=== PATIENT | female | born 1945 | race Caucasian/White ===

== ENCOUNTER 2017-05-02 11:56 | Emergency (ER) | payer MEDICARE, OTHER ==
[~2017-05-02] VITALS: Ht 147.3 cm; Wt 56.0 kg
[~2017-05-02 11:56] MED LIST: AMLODIPINE5 MG PO; B COMPLE2 PO; CLOPIDOGREL75 MG PO; FISH OIL1000 MG PO; FLUTICASONE50 MCG; LORATADINE10 M1 PO; MAXZIDE-2537.5 MG/TA PO; OXYBUTYNIN5 M1 PO; PROLIA60 MG/ML SC; SIMVASTATIN20 MG PO; VITAMIN E400 UNIT PO
[2017-05-02 12:56] LABS: HEMOGLOBIN 13.1 g/dl (12.0-16.0); IMMATURE GRANULOCYTES 0.8 % (0.0-1.0); MEAN CELL VOLUME 90.5 fL CALC (80.0-100.0); MEAN CORPUSCULAR HGB 29.6 pG CALC (26.0-32.0); MEAN CORPUSCULAR HGB CONC 32.8 g/L CALC (32.0-36.0); NEUT# 4.89 thou/uL (2.00-7.15); RED BLOOD COUNT 4.42 mill/uL (4.20-5.60); RED CELL DISTRI WIDTH 13.2 % (11.5-15.5)
[2017-05-02 13:19] LABS: ALBUMIN 4.7 g/dL (3.2-5.0); ALKALINE PHOSPHATASE 83 u/l (38-126); ANION GAP 18 (6-22 (CALC)); BILIRUBIN, TOTAL 0.9 mg/dL (0.0-1.4); BUN 14 mg/dL (8-23); BUN/CREATININE RATIO 16 (12-20 (CALC)); CALCIUM 9.7 mg/dL (8.4-10.2); CARBON DIOXIDE 24 mmol/l (22-30); CHLORIDE 104 mmol/l (95-108); CREATININE 0.9 mg/dL (0.5-1.0); GFR > 60 ML/MIN (>=60 (CALC)); GFR FOR AFR.AMER. > 60 ML/MIN (>=60 (CALC)); GLUCOSE 133 mg/dL (82-115); LIPASE 188 u/l (23-300); POTASSIUM 3.6 mmol/l (3.5-5.1); SGOT/AST 30 u/l (9-36); SGPT/ALT 40 u/l (11-66); SODIUM 142 mmol/l (137-146); TOTAL PROTEIN 7.3 g/dL (6.3-8.2)
[2017-05-02 13:49] LABS: URINE BILIRUBIN - DIPSTICK NEGATIVE (NEGATIVE); URINE BLOOD DIPSTICK NEGATIVE (NEGATIVE); URINE CLARITY CLEAR; URINE COLOR YELLOW; URINE GLUCOSE - DIPSTICK NEGATIVE (NEGATIVE); URINE KETONE 15 mg/dL (NEGATIVE); URINE LEUK ESTERASE NEGATIVE (NEGATIVE); URINE NITRITE - DIPSTICK NEGATIVE (Negative); URINE PROTEIN - DIPSTICK NEGATIVE (NEG-TRACE); URINE SPECIFIC GRAVITY 1.015; URINE UROBILINOGEN - DIPSTICK 0.2 E.U./dL (0.2)
[2017-05-02] MEDS ORDERED: ZOFRAN4 M1 PO (13:52)
[2017-05-02 14:07] VITALS: BP 128/76
== END 2017-05-02 14:20 | disposition home or self-care (01) ==
LOC: ED 11:56
PROVIDERS: Family Medicine
DX: K52.9 Noninfective gastroenteritis and colitis, unspecified (principal); I10 Essential (primary) hypertension; Z86.73 Personal history of transient ischemic attack (TIA), and cerebral infarction without residual deficits

== ENCOUNTER → 2018-10-19 | Outpatient (REF) | payer MEDICARE, OTHER ==
[~2018-10-19] MED LIST changes: +ZOFRAN4 M1 PO
[2018-10-19 10:22] LABS: HEMATOCRIT 39.9 % (37.0-47.0); HEMOGLOBIN 12.5 g/dl (12.0-16.0); IMMATURE GRANULOCYTES 0.2 % (0.0-5.0); MEAN CELL VOLUME 93.2 fL CALC (80.0-100.0); MEAN CORPUSCULAR HGB 29.2 pG CALC (26.0-32.0); MEAN CORPUSCULAR HGB CONC 31.3 g/L CALC (32.0-36.0); NEUT# 2.99 thou/uL (2.00-7.15); RED BLOOD COUNT 4.28 mill/uL (4.20-5.60); RED CELL DISTRI WIDTH 13.3 % (11.5-15.5)
[2018-10-19 10:42] LABS: ALBUMIN 4.4 g/dL (3.2-5.0); ALKALINE PHOSPHATASE 76 u/l (38-126); ANION GAP 13 (6-22 (CALC)); BILIRUBIN, TOTAL 0.4 mg/dL (0.0-1.4); BUN 15 mg/dL (8-23); BUN/CREATININE RATIO 17 (12-20 (CALC)); CALCULATED LDLCHOLESTEROL 57 mg/dL (62-129 (CALC)); CARBON DIOXIDE 27 mmol/l (22-30); CHLORIDE 107 mmol/l (95-108); CHOLESTEROL HDL RATIO 2.4 (<4.4 (CALC)); CREATININE 0.9 mg/dL (0.5-1.0); GFR > 60 ML/MIN (>=60 (CALC)); GFR FOR AFR.AMER. > 60 ML/MIN (>=60 (CALC)); HDL CHOLESTEROL 56 mg/dL (>=40); POTASSIUM 3.9 mmol/l (3.5-5.1); SGOT/AST 28 u/l (9-36); SODIUM 143 mmol/l (137-146); TOTAL CHOLESTEROL 133 mg/dl (0-199); TOTAL PROTEIN 6.6 g/dL (6.3-8.2); TOTAL TRIGLYCERIDES 100 mg/dl (30-149); VLDL CHOLESTROL 20 mg/dl (0-48 (CALC))
== END | disposition home or self-care (01) ==
LOC: LAB 09:07
PROVIDERS: ATTEND Nurse Practitioner Family
DX: I10 Essential (primary) hypertension (principal); M81.0 Age-related osteoporosis without current pathological fracture; M81.8 Other osteoporosis without current pathological fracture; N18.3 Chronic kidney disease, stage 3 (moderate)

== ENCOUNTER 2021-06-14 15:04 | Inpatient (IN) | payer MEDICARE, OTHER ==
[~2021-06-14] VITALS: Ht 149.9 cm; Wt 59.0 kg
--- NOTE | 2021-06-14 15:36 | NUR ---
PATIENT IN BED IN IN NO ACUTE DISTRESS. LABS COLLECTED. -
[2021-06-14 15:45] LABS: HEMATOCRIT 37.8 % (37.0-47.0); HEMOGLOBIN 12.6 g/dl (12.0-16.0); IMMATURE GRANULOCYTES 0.2 % (0.0-5.0); MEAN CORPUSCULAR HGB 29.3 pG CALC (26.0-32.0); MEAN CORPUSCULAR HGB CONC 33.3 g/dL CAL (32.0-36.0); NEUT# 5.33 thou/uL (2.00-7.15); RED BLOOD COUNT 4.3 mill/uL (4.20-5.60); RED CELL DISTRI WIDTH 12.9 % (11.5-15.5)
[2021-06-14 15:47] LABS: MEAN CELL VOLUME 87.9 fL CALC (80.0-100.0)
[2021-06-14 15:56] LABS: ALBUMIN 3.6 g/dL (3.2-5.0); ALKALINE PHOSPHATASE 89 u/l (38-126); BILIRUBIN, TOTAL 0.8 mg/dL (0.0-1.4); BUN 18 mg/dL (8-23); BUN/CREATININE RATIO 23 (12-20 (CALC)); C-REACTIVE PROTEIN 7.1 mg/dL (0-0.9); CARBON DIOXIDE 24 mmol/l (22-30); CREATININE 0.8 mg/dL (0.5-1.0); GFR > 60 ML/MIN (>=60 (CALC)); GFR FOR AFR.AMER. > 60 ML/MIN (>=60 (CALC)); SGOT/AST 36 u/l (9-36); TOTAL PROTEIN 6.3 g/dL (6.3-8.2)
[2021-06-14 15:57] LABS: ANION GAP 12 (6-22 (CALC)); CHLORIDE 92 mmol/l (95-108); POTASSIUM 3.4 mmol/l (3.5-5.1); SODIUM 125 mmol/l (137-146)
--- NOTE | 2021-06-14 16:50 | NUR ---
ASSISTED TO BEDSIDE COMMODE.
--- NOTE | 2021-06-14 18:19 | NUR ---
PER PTS REQUEST CALLED PTS AND UPDATED ON CONDITION.
[2021-06-14 18:29] LABS: URINE BILIRUBIN - DIPSTICK NEGATIVE (NEGATIVE); URINE BLOOD DIPSTICK SMALL (NEGATIVE); URINE COLOR YELLOW; URINE GLUCOSE - DIPSTICK NEGATIVE (NEGATIVE); URINE KETONE TRACE mg/dL (NEGATIVE); URINE LEUK ESTERASE NEGATIVE (NEGATIVE); URINE PROTEIN - DIPSTICK 30 mg/dL (NEG-TRACE); URINE SPECIFIC GRAVITY 1.015; URINE UROBILINOGEN - DIPSTICK 0.2 E.U./dL (0.2)
[2021-06-14 18:30] LABS: URINE NITRITE - DIPSTICK NEGATIVE (Negative)
--- NOTE | 2021-06-14 18:30 | NUR ---
RT AT BEDSIDE
[2021-06-14 18:42] LABS: URINE RBC 0-2 RBC/hpf (0-5)
--- NOTE | 2021-06-14 19:00 | NUR ---
REPORT GIVEN TO CARMELITA GOODSON.
--- NOTE | 2021-06-14 19:06 | NUR ---
RT AT BEDSIDE AND PLACED ON HI FLOW NC AT 13L WITH AN O2 SAT OF 93%
--- NOTE | 2021-06-14 19:51 | NUR ---
SPOUSE UPDATED REGARDING ADMISSION PER PATIENT REQUEST.
--- NOTE | 2021-06-14 19:59 | NUR ---
RECONCILED MEDICATIONS WITH PT. RESTING COMFORTABLY AND AWAITING ADMISSION.
--- NOTE | 2021-06-14 20:53 | NUR ---
PT DOZING INTERMITTENTLY. DENIES CONCERNS AT THIS TIME. VSS.
--- NOTE | 2021-06-14 21:45 | NUR ---
SLEEPING. COVID SWAB COMPLETED.
--- NOTE | 2021-06-14 23:49 | NUR ---
REPORT CALLED TO ANGELICA GOODSON IN ICU
--- NOTE | 2021-06-14 23:59 | NUR ---
PT TRANSPORTED TO ICU VIA STRETCHER, ALL BELONGINGS SENT WITH PATIENT.
[2021-06-15] VITALS (19 sets, daily range): BP systolic 96–176; BP diastolic 45–91
--- NOTE | 2021-06-15 00:08 | NUR ---
female pt received to ICU bed 1 via stretcher accompanied by FLORES Newman in stable condition; pt able to transfer self from bed to bed; admission assessment completed at this time; pt alert and oriented; denies pain; no n/v noted; c/c of increased sob and cough; pt sent from IVT (d/t receive regeneron) to ER for low o2; resp even and unlabored; lungs clear/ diminished bases; skin color wnl; o2 per hi flow nc at 13L; o2 sat 83%; titrated to 15L; different methods of oxygenation explained (vapo, bipap and intubation); bridge painter helper dry freq cough noted; hr reg; strong pulses; no edema noted; sr on monitor; abd soft with bs present; no bm noted per food writer; pt saturated in urine; pericare provided; purewick applied; #20 to rac #22 to lac flushed and patent; no redness or edema noted at sites; plan of care/ ivf explained; pt oriented to bed and call light system; will continue to monitor
--- NOTE | 2021-06-15 01:15 | NUR ---
resting in bed with eyes closed; o2 per nc at 15L; o2 sat 95%; will continue to monitor
--- NOTE | 2021-06-15 02:15 | NUR ---
resting in bed with eyes closed; no apparent distress noted; o2 per nc at 15L; sr on monitor; call light within reach; will continue to monitor
--- NOTE | 2021-06-15 04:30 | NUR ---
awake in bed; offers no complaints; no apparent distress noted; iv intact; o2 per nc at 15L HF; sr on monitor; purewick intact and patent; call light within reach; will continue to monitor
[2021-06-15 05:05] LABS: HEMOGLOBIN 12.6 g/dl (12.0-16.0); IMMATURE GRANULOCYTES 0.4 % (0.0-5.0); MEAN CELL VOLUME 90.5 fL CALC (80.0-100.0); MEAN CORPUSCULAR HGB 29.2 pG CALC (26.0-32.0); MEAN CORPUSCULAR HGB CONC 32.3 g/dL CAL (32.0-36.0); NEUT# 4.26 thou/uL (2.00-7.15); RED BLOOD COUNT 4.31 mill/uL (4.20-5.60)
[2021-06-15 05:25] LABS: ALBUMIN 3.1 g/dL (3.2-5.0); ALKALINE PHOSPHATASE 77 u/l (38-126); ANION GAP 12 (6-22 (CALC)); BILIRUBIN, TOTAL 0.6 mg/dL (0.0-1.4); BUN 15 mg/dL (8-23); BUN/CREATININE RATIO 22 (12-20 (CALC)); C-REACTIVE PROTEIN 7.3 mg/dL (0-0.9); CARBON DIOXIDE 22 mmol/l (22-30); CHLORIDE 102 mmol/l (95-108); CREATININE 0.7 mg/dL (0.5-1.0); GFR > 60 ML/MIN (>=60 (CALC)); GFR FOR AFR.AMER. > 60 ML/MIN (>=60 (CALC)); POTASSIUM 3.9 mmol/l (3.5-5.1); SGOT/AST 36 u/l (9-36); TOTAL PROTEIN 5.6 g/dL (6.3-8.2)
[2021-06-15 05:31] LABS: SODIUM 132 mmol/l (137-146)
--- NOTE | 2021-06-15 06:02 | NUR ---
pt resting in bed with eyes closed; no apparent distress noted; resp even and unlabored; o2 per nc HF 15L; purewick intact; sr on monitor; iv intact and patent; call light within reach
--- NOTE | 2021-06-15 07:00 | NUR ---
REPORT RECEIVED FROM KELLEE DOMINGUEZ. PT RESTING WITH EYES CLOSED. VSS. DOES NOT APPEAR TO BE SOB, OR IN RESPIRATORY DISRESS. CALL BAZAN WITHIN REACH. WILL CONTINUE TO MONITOR CLOSELY.
--- NOTE | 2021-06-15 07:24 | NUR ---
pt laying flat in bed, nad. vss. box stamper to monitor.
--- NOTE | 2021-06-15 08:10 | NUR ---
PT ASSESSED AT THIS TIME, SPO2 IS 96% ON 15L HIFLOW OXYGEN. PT AWAKENS EASILY, AND RESPONDS APPROPRIATELY. CARRIES ON CASUAL CONVERSATION WITHOUT EXERTIONAL SOB. ABLE TO TAKE DECADRON PO WITH THIN LIQUIDS WITH NO COUGH NOTED. PT ADL'S PREFORMED, OXYGEN ATTEMPTED TO TITRATE TO 13L, DOES NOT APPEAR TO BE IN ANY RESPIRATORY DISTRESS AFTER 5 MINUTES OF ASSESSMENT. SPO2 REMAINS AT 93%, OXYGEN TITRATED TO 10L, AND SPO2 DROPS TO 88%. PT BEGINS TO COUGH AND HAS PRODUCTIVE CLEAR/YELLOW SPUTUM. SPO2 IS 82% AND PT IS SOB. OXYGEN TITRATED BACK TO 13L, AFTER TWO MINUTES, SPO2 REMAINS AT 85% OXYGEN TITRATED BACK TO 15L. IN THIS TIME REMDESIVIR SPIKED AND RUNNING. PT SPO2 REACHES 94% ON 15L. WILL KEEP AT 15L, UNTIL AFTER AM CARE, AND ATTEMPT TITRATION AGAIN. WILL COLLABORATE WITH RT FOR CONTINUAL DECREASE OF TITRATION. MD ON UNIT AND WILL INFORM OF ATTEMPT.
--- NOTE | 2021-06-15 10:14 | NUR ---
PT RESTING IN BED, SPO2 IS 94% ON 15L HIGH FLOW. MD NOTIFIED OF BOP 172/70, HOME MEDS TO BE REVIEWED AND ORDERED. PT DOES NOT APPEAR TO BE SOB OR HAVE DISCOMFORT. TOLERATED BED BATH WITH EXERTIONAL SOB. GIVEN BREAKS INBETWEEN TASKS AND SPO2 RISES ABOVE 88%. CALL LIGHT WITHIN REACH. INSTRUCTED PT TO CALL FOR ASSISTANCE, VERBALIZES UNDERSTANDING.
--- NOTE | 2021-06-15 12:00 | NUR ---
PT SITTING SEMI-FOWLERS IN BED. VSS, PT SAT-UP FOR MEAL TRAY, PT STATES "I DO NOT EAT BEEF, BUT DONT ORDER ME ANYTHING ELSE, BECAUSE I AM HONESTLY NOT THAT HUNGRY." PT TOLERATED LUISANA SHAKE, DRANK 100% OF SHAKE. SPO2 REMAINS 85-92% ON 14L HI-FLOW. CALL LIGHT WITHIN REACH, INSTRUCTED PT TO CALL FOR ASSISTANCE, VERBALIZES UNDERSTANDING.
--- NOTE | 2021-06-15 13:59 | NUR ---
PT RESTING IN BED SEMI-FOWLERS. DENIES PAIN. STATES "I HONESTLY DONT FEEL SHORT OF BREATHE." PT ALSO STATES "I WISH EVERYONE WOULD JUST LET US BE." UPON FURTHER QUESTIONING, PT ADMITS TO WAKING UP FROM A SLEEP. PT ADMITS TO HAVING A LARGE AMOUNT OF STRESS REGARDING THE LOSS OF HER SON WITHIN THE LAST TWO WEEKS. PT ADMITS TO BE EXHAUSTED FROM EVENTS. SUPPORTIVE THERAPEUTIC COMMUNICATION GIVEN. PT SPO2 REMAINS BETWEEN 85-92%
--- NOTE | 2021-06-15 15:12 | NUR ---
RT NOTIFIED AT THIS TIME OF PT'S INCREASED CONFUSION AND SPO2 REMAINING IN THE LOW 80'S. VAPOTHERM TO BE INITIATED.
--- NOTE | 2021-06-15 15:20 | NUR ---
HHFNC INITIATED PER PT SPO2. MICHEAL WELL AT THIS TIME. GAS PLUMBING INSPECTOR TO MONITOR.
--- NOTE | 2021-06-15 16:00 | NUR ---
PT SPO2 IS 72% TITRATED HHFNC FROM 99-14-62-40L WITHIN A 15 MINUTE TIME SPAN. RT NOTIFIED OF SATURATION LEVELS BEING LOW. MD AWARE OF PT'S LOW SPO2. PT DENIES FEELING SOB, VS OTHERWISE STABLE.
--- NOTE | 2021-06-15 18:00 | NUR ---
FAMILY NOTIFIED OF PT'S LOW SPO2, POC REVIEWED WITH FAMILY. STATES UNDERSTANDING AT THIS TIME. PT REMAINS CONFUSED AND ATTEMPTING TO TAKE OXYGEN OFF. WILL CONTINUE TO MONITOR CLOSELY.
--- NOTE | 2021-06-15 19:20 | NUR ---
pt awake in bed; very anxious/ restless; assessment completed at this time; pt alert to person and time only; pt noted with some confusion; pt denies pain/ distress; no n/v noted; resp labored; pt has removed vapotherm and NRB; o2 sat 63% on RA; both re-applied with a quick recovery to 87-91%; comsec manager dry cough noted; lungs clear/ diminished bases; skin color wnl; pt more exerted with repositioning; o2 therapy importance explained in great detail/ pt compliance also explained; hr reg; strong pulses; no edema noted; bilat scds intact; sr on monitor; abd soft with bs present; no bm noted per production underwriter; purewick dislodged and reapplied correctly; no urinary incontinence noted; #20 to rac and #22 to lac flushed and patent; no redness or edema noted at sites; plan of care/ meds explained; xanax to be administered; pt expresses wishes to go home for her son leslie on 06/21/21; severity of illness explained; emotional support provided; bed alarm activated for pt safety; will continue to monitor
--- NOTE | 2021-06-15 20:10 | NUR ---
resting in bed with eyes closed; resp even and unlabored; sr on monitor; vapotherm and NRB intact; o2 sat 88%; will continue to monitor
--- NOTE | 2021-06-15 20:16 | NUR ---
pt alarm sounding; pt attempting to get out of bed
--- NOTE | 2021-06-15 20:23 | NUR ---
Dr Acosta call; spoke with MD in regards to o2 sat; pt currently 88% with the use of vapo and NRB; pt to be converted to bipap for sats less than 87% or increased sob/resp distress; will continue to monitor
--- NOTE | 2021-06-15 20:50 | NUR ---
pt noted to have removed vapo and NRB; o2 sat 61% on room; air; both reapplied; pt SLOW to recover
--- NOTE | 2021-06-15 21:12 | NUR ---
pt has removed NRB; 02 sat 80% with vapotherm only; reapplied; RT notiifed of plan for bipap for o2 sat <88%; will continue to monitor
--- NOTE | 2021-06-15 21:35 | NUR ---
RT at bedside; bipap applied at 100%; o2 sat 99%; will continue to monitor
--- NOTE | 2021-06-15 22:10 | NUR ---
pt noted to be sitting on the side of bed; pt has removed purewick; pt has attempted to remove bipap; repositioned; pericare per staff; purewick placed; increased confusion noted;; sr on monitor; will continue to monitor
--- NOTE | 2021-06-15 22:22 | NUR ---
pt has removed bipap mask; desat to low 60%; importance of o2 compliance explained; pt less cooperative with staff; will continue to monitor
--- NOTE | 2021-06-15 22:26 | NUR ---
Dr Acosta called per commercial real estate underwriter; informed bipap was placed at 2134; pt more confused and less cooperative with staff; pt continues to remove bipap frequently; no effect from xanax; orders to be placed; aware of possible need for intubation if pt continues to remove bipap
--- NOTE | 2021-06-15 22:27 | NUR ---
call placed to grand daughter Soumya; family (Soumya and Leroy) updated on pt condition in regards to bipap and pt less cooperative with staff/ continuously removing bipap/desat/possible need for intubation if behavior continues; family requested to speak with pt ovre portable phone; pt able to converse with family and agree to treatment at this time; will medicate and continue to monitor
--- NOTE | 2021-06-15 23:40 | NUR ---
pt very fidgety; pulling at pulse ox cord; pulse ox applied to right great toe; bipap intact and maintained; will continue to monitor
[2021-06-16] VITALS (11 sets, daily range): BP systolic 114–166; BP diastolic 50–78
--- NOTE | 2021-06-16 | NUR ---
eyes closed but pt noted talking amongst self; no distress noted; pt has removed bipap; reappied; iv intact; sr on monitor; purewick intact; repositioned in bed for comfort; will continue to monitor closely
--- NOTE | 2021-06-16 01:31 | NUR ---
pt removed bipap/ desat to 53%; quickly recovers once reapplied; pt has removed gown and tele leads; complete bed bath/linen change provided; repositioned; monitoring attachments reapplied; will continue to monitor
--- NOTE | 2021-06-16 02:11 | NUR ---
awake; removed compliance monitor and iv from lac; linens changed; #20 started to rw x1 attempt; sites secured with coban; will continue to monitor
--- NOTE | 2021-06-16 03:15 | NUR ---
[id number]: pt confused; pt has removed monitoring attachements, gown and bipap; bipap reapplied; pt pushing against staff when attempting to apply bipap; o2 sat recovered from 53% on RA to 94-97% quickly with bipap; cleansed for lg loose brown bm; pt removes purewick soon as applied; relaxation measures attempted; will continue to monitor
--- NOTE | 2021-06-16 04:08 | NUR ---
awake in bed; bipap intact and maintained; pt less anxious at this time; iv intact; will continue to monitor
[2021-06-16 05:01] LABS: HEMATOCRIT 38.8 % (37.0-47.0); HEMOGLOBIN 12.5 g/dl (12.0-16.0); MEAN CORPUSCULAR HGB CONC 32.2 g/dL CAL (32.0-36.0); NEUT# 5.02 thou/uL (2.00-7.15); RED BLOOD COUNT 4.31 mill/uL (4.20-5.60); RED CELL DISTRI WIDTH 13.3 % (11.5-15.5)
[2021-06-16 05:29] LABS: ALKALINE PHOSPHATASE 88 u/l (38-126); BILIRUBIN, TOTAL 0.7 mg/dL (0.0-1.4); BUN 18 mg/dL (8-23); BUN/CREATININE RATIO 25 (12-20 (CALC)); CHLORIDE 101 mmol/l (95-108); CREATININE 0.7 mg/dL (0.5-1.0); GFR > 60 ML/MIN (>=60 (CALC)); GFR FOR AFR.AMER. > 60 ML/MIN (>=60 (CALC)); POTASSIUM 4.3 mmol/l (3.5-5.1); SODIUM 134 mmol/l (137-146); TOTAL PROTEIN 5.6 g/dL (6.3-8.2)
[2021-06-16 05:30] LABS: ANION GAP 9 (6-22 (CALC)); CARBON DIOXIDE 28 mmol/l (22-30); SGOT/AST 192 u/l (9-36)
--- NOTE | 2021-06-16 05:45 | NUR ---
pt has removed bipap; o2 sat 33% upon entry to room; bipap reapplied with slow recovery in o2 sat; pt cleansed for lg urinary incont; linens change; iv intact; sr-st on monitor; repositioned; bed alarm set for pt safety
--- NOTE | 2021-06-16 06:11 | NUR ---
hald way our of bed; bipap reapplied;
--- NOTE | 2021-06-16 08:29 | NUR ---
PT RESTING CALMLY AT THIS TIME AFTER IV ADMINISTRATION OF ATIVAN. BIPAP SECURED WITH 0 LEAK PRESENT, RE-ADJUSTMENTS MADE S/T ABG RESULTS. SETTINGS MADE ARE 14/10 FIO2 INCREASED TO 90% AND RR DECREASED TO 20. CHRISTIAN PLACED AT THIS TIME TO REDUCE IRRITATION.
--- NOTE | 2021-06-16 09:40 | NUR ---
ON PHONE AT THIS TIME. EXPLANATION OF PT STATUS EXPLAINED AT LENGTH. POC DISCUSSED. REFUSING PT TO BE INTUBATED OR CPR PREFORMED IF PT WERE TO DECLINE, OR NEED LIFE SAVING MEASURES. MD MADE AWARE OF DECISION, STATES HE WILL CALL AND DISCUSS POC FURTHER.
--- NOTE | 2021-06-16 10:16 | NUR ---
PT MADE DNR STATUS AT THIS TIME. VS REMAIN STABLE AND BIPAP REMAINS ON WITH NO CHANGE TO SETTINGS. PT REMAINS RESTLESS, RESTRAINTS IN PLACE
--- NOTE | 2021-06-16 11:38 | NUR ---
SPOKE WITH DR SIMMONS ABOUT PATIENT STATUS. PATIENT HAS BEEN MADE A DNR PER FAMILY REQUEST. CONTINUE BIPAP 14/10 80% TITRATE TOLERATED.
--- NOTE | 2021-06-16 14:00 | NUR ---
PT RESTING WITH RESTRAINTS IN PLACE, VSS, PT GIVEN ORAL CARE AND REPOSITIONED. NO EVENTS TO REPORT.
--- NOTE | 2021-06-16 16:24 | NUR ---
PT FIO2 WEANED SLOWLY TO 70% BECAUSE SATS WERE 100%.
--- NOTE | 2021-06-16 16:37 | NUR ---
PT ON PHONE STATING THAT HE IS HAVING SECOND THOUGHTS ABOUT POC, STATES HE DOES WANT HIS TO BE INTUBATED IF THE BIPAP SHOULD FAIL AND PT NEEDS EXTRA SUPPORTIVE CARE. INFORMED EDUCATED OF DNR STATUS AND POC, INTUBATION OF DECLINE OF PT WOULD STILL TAKE PLACE IF BIPAP MACHINE FAILS. STATES UNDERSTANDING.
--- NOTE | 2021-06-16 18:00 | NUR ---
PT SPO2 REMAINS 94-98% ON 70%FIO2. VSS, PT AWAKE AND MORE ALERT. COOPERATIVE. STILL TRYING TO REACH FOR MASK AT TIMES, RESTRAINTS REMAIN IN PLACE FOR SAFETY MEASURES. PT DOES NOT APPEAR TO BE IN RESPIRATORY DISTRESS. WILL CONTINUE TO MONITOR CLOSELY.
--- NOTE | 2021-06-16 19:00 | NUR ---
REPORT RECEIVED FROM Franck SOMMERRN
--- NOTE | 2021-06-16 20:16 | NUR ---
PT IN SUPINE POSITION, RESTING WITH EYES CLOSED; BIPAP IN PLACE 30/05 RR20 70% FIO2, O2 SATS 96%; CHRISTIAN DRAINING TO BEDSIDE BAG WITHOUT DIFFICULTY; SCD IN PLACE; BILAT SOFT WRIST RESTRAINTS IN PLACE FOR PT SAFETY; CALL BAZAN WITHIN REACH; WILL CONTINUE TO MONITOR.
--- NOTE | 2021-06-16 22:40 | NUR ---
PT AROUSABLE; A/O TO NAME ONLY; NO COMPLAINTS; NO S/SX OF DISTRESS NOTED; BIPAP IN PLACE; WILL CONTINUE TO MONITOR.
[2021-06-17] VITALS (22 sets, daily range): BP systolic 108–159; BP diastolic 54–77
--- NOTE | 2021-06-17 00:15 | NUR ---
PT REPOSITIONED; PT REQUEST WARM BLANKET PROVIDED; CALL BAZAN WITHIN REACH; WILL CONTINUE TO MONITOR
--- NOTE | 2021-06-17 02:00 | NUR ---
pt resting; restraints in place; bipap settings unchanged; pt o2 sat 98%; will continue to monitor.
--- NOTE | 2021-06-17 04:37 | NUR ---
PT REPOSITIONED; NO CHANGE IN STATUS AT THIS TIME; WILL CONTINUE TO MONITOR
--- NOTE | 2021-06-17 04:46 | NUR ---
DIAMOND GRADER IN ROOM TO DRAW BLOOD
[2021-06-17 05:15] LABS: HEMATOCRIT 37.6 % (37.0-47.0); HEMOGLOBIN 12.1 g/dl (12.0-16.0); IMMATURE GRANULOCYTES 0.7 % (0.0-5.0); MEAN CELL VOLUME 91.9 fL CALC (80.0-100.0); MEAN CORPUSCULAR HGB 29.6 pG CALC (26.0-32.0); MEAN CORPUSCULAR HGB CONC 32.2 g/dL CAL (32.0-36.0); NEUT# 5.93 thou/uL (2.00-7.15); RED BLOOD COUNT 4.09 mill/uL (4.20-5.60); RED CELL DISTRI WIDTH 13.2 % (11.5-15.5)
[2021-06-17 05:52] LABS: ALBUMIN 2.8 g/dL (3.2-5.0); ALKALINE PHOSPHATASE 78 u/l (38-126); ANION GAP 9 (6-22 (CALC)); BILIRUBIN, TOTAL 0.6 mg/dL (0.0-1.4); BUN 23 mg/dL (8-23); BUN/CREATININE RATIO 34 (12-20 (CALC)); C-REACTIVE PROTEIN 6.5 mg/dL (0-0.9); CARBON DIOXIDE 28 mmol/l (22-30); CHLORIDE 104 mmol/l (95-108); CREATININE 0.7 mg/dL (0.5-1.0); GFR > 60 ML/MIN (>=60 (CALC)); GFR FOR AFR.AMER. > 60 ML/MIN (>=60 (CALC)); POTASSIUM 4.1 mmol/l (3.5-5.1); SGOT/AST 71 u/l (9-36); SODIUM 137 mmol/l (137-146); TOTAL PROTEIN 5.3 g/dL (6.3-8.2)
--- NOTE | 2021-06-17 06:28 | NUR ---
PATIENT RESTING IN BED ON BIPAP. NO DISTRESS NOTED. VSS ON MONITOR. WILL CONTINUE TO MONITOR.
--- NOTE | 2021-06-17 09:12 | NUR ---
MEDS GIVEN PER OCT. MOUTH CARE PROVIDED. BROWN TO DARK BROWN THICK SPUTUM COUGH UP. CONTINUES WITH BPAP.
--- NOTE | 2021-06-17 09:26 | NUR ---
DR BRASWELL IN WITH PT AT THIS TIME.
--- NOTE | 2021-06-17 11:19 | NUR ---
CURRENTLY ON VAPORTHERM 100% FI02 40L WITH NONREBREATHER 15L. 02 SAT 87-92%.
--- NOTE | 2021-06-17 12:30 | NUR ---
ASSIST FED LUNCH ABOUT 50% CONSUMED.
--- NOTE | 2021-06-17 14:10 | NUR ---
REMDESIVIR INFUSING AT THIS TIME.
--- NOTE | 2021-06-17 15:05 | NUR ---
BED BATH PROVIDED, MOUTH CARE DONE, LINENS CHANGED.
--- NOTE | 2021-06-17 17:30 | NUR ---
RECIEVED CALL FROM BETTY LADD AND GAVE UPDATE ON PT CONDITION.
--- NOTE | 2021-06-17 19:00 | NUR ---
REPORT RECEIVED FROM Julia MAYA RN, CARE OF PT ASSUMED AT THIS TIME.
--- NOTE | 2021-06-17 22:30 | NUR ---
PT COMPLAINS OF FEELING THE NEED TO VOID. ON ASSESMENT CHRISTIAN IS SECURED TO LEG, TUBING UNKINKED AND UNOBSTRUCTED DRAINING CLEAR YELLOW URINE. BLADDER SCANPERFORMED AND SHOWS RESULT OF 000ML.
[2021-06-18] VITALS (24 sets, daily range): BP systolic 100–163; BP diastolic 48–90
--- NOTE | 2021-06-18 04:10 | NUR ---
Franck BATISTA MATRIX DRIER TENDER IN ROOM TO COLLECT AM LABS.
--- NOTE | 2021-06-18 04:40 | NUR ---
SPO2 76%, PT NOT KEEPING CANNULA IN NOSE AND TWISTS NRB BAG CAUSING FLOW OBSTRUCTION. B. JESSY MILL TENDER SECOND OPERATOR CONSULTED. B. JESSY RE-APPLIES BIPAP TO PT. SPO2 INCREASES TO 95%. PT TOLERATING BIPAP WITHOUT ATTEMPTING TO REMOVE AT THIS TIME.
[2021-06-18 06:00] LABS: HEMATOCRIT 37.5 % (37.0-47.0); HEMOGLOBIN 12.2 g/dl (12.0-16.0); MEAN CELL VOLUME 90.4 fL CALC (80.0-100.0); MEAN CORPUSCULAR HGB 29.4 pG CALC (26.0-32.0); MEAN CORPUSCULAR HGB CONC 32.5 g/dL CAL (32.0-36.0); RED BLOOD COUNT 4.15 mill/uL (4.20-5.60)
[2021-06-18 06:13] LABS: ALBUMIN 2.6 g/dL (3.2-5.0); ALKALINE PHOSPHATASE 81 u/l (38-126); ANION GAP 7 (6-22 (CALC)); BILIRUBIN, TOTAL 0.5 mg/dL (0.0-1.4); BUN 21 mg/dL (8-23); BUN/CREATININE RATIO 31 (12-20 (CALC)); CARBON DIOXIDE 28 mmol/l (22-30); CHLORIDE 100 mmol/l (95-108); CREATININE 0.7 mg/dL (0.5-1.0); GFR > 60 ML/MIN (>=60 (CALC)); GFR FOR AFR.AMER. > 60 ML/MIN (>=60 (CALC)); POTASSIUM 3.8 mmol/l (3.5-5.1); SGOT/AST 45 u/l (9-36); SODIUM 132 mmol/l (137-146); TOTAL PROTEIN 5.1 g/dL (6.3-8.2)
--- NOTE | 2021-06-18 08:00 | NUR ---
PT UP OUT OF BED INTO RECLINER. RT PLACED PT ON VAPOTHERM 40L 100% FIO2 WITH NRB AT 15L. ATTEMPTED TO ASSIST WITH BREAKFAST LESS THAN 25% CONSUMED.
--- NOTE | 2021-06-18 08:58 | NUR ---
DR BRASWELL IN TO SEE PT.
--- NOTE | 2021-06-18 11:00 | NUR ---
ASSISTED WITH LUNCH ABOUT 50% CONSUMED.
--- NOTE | 2021-06-18 13:43 | NUR ---
RESTING COMFORTABLE IN RECLINER.
--- NOTE | 2021-06-18 15:50 | NUR ---
RT IN WITH PT.
--- NOTE | 2021-06-18 17:00 | NUR ---
ASSISTED BACK TO BED FROM RECLINER WITH ONE PERSON ASSIST.
--- NOTE | 2021-06-18 19:00 | NUR ---
REPORT RECEIVED FROM Julia MAYA RN, CARE OF PT ASSUMED AT THIS TIME.
[2021-06-19] VITALS (14 sets, daily range): BP systolic 125–151; BP diastolic 59–84
--- NOTE | 2021-06-19 04:05 | NUR ---
Franck BATISTA SALES AGENT BUSINESS SERVICES IN ROOM TO COLLECT AM LABS.
[2021-06-19 06:02] LABS: HEMOGLOBIN 11.7 g/dl (12.0-16.0); IMMATURE GRANULOCYTES 1.7 % (0.0-5.0); MEAN CELL VOLUME 86.8 fL CALC (80.0-100.0); MEAN CORPUSCULAR HGB CONC 33.4 g/dL CAL (32.0-36.0); NEUT# 8.22 thou/uL (2.00-7.15); RED BLOOD COUNT 4.03 mill/uL (4.20-5.60); RED CELL DISTRI WIDTH 12.8 % (11.5-15.5)
[2021-06-19 06:31] LABS: ALBUMIN 2.6 g/dL (3.2-5.0); ALKALINE PHOSPHATASE 84 u/l (38-126); ANION GAP 11 (6-22 (CALC)); BILIRUBIN, TOTAL 0.5 mg/dL (0.0-1.4); BUN 18 mg/dL (8-23); BUN/CREATININE RATIO 24 (12-20 (CALC)); CARBON DIOXIDE 28 mmol/l (22-30); CHLORIDE 100 mmol/l (95-108); CREATININE 0.8 mg/dL (0.5-1.0); GFR > 60 ML/MIN (>=60 (CALC)); GFR FOR AFR.AMER. > 60 ML/MIN (>=60 (CALC)); POTASSIUM 4.2 mmol/l (3.5-5.1); SGOT/AST 42 u/l (9-36); SODIUM 134 mmol/l (137-146); TOTAL PROTEIN 5.2 g/dL (6.3-8.2)
--- NOTE | 2021-06-19 06:55 | NUR ---
report received from police shift commander. pt resting quietly in bed, vapo therm at 40 vital signs stable. pt watching tv at this time, alert/oriented, side rails up.
--- NOTE | 2021-06-19 09:24 | NUR ---
PHYSICAL THERAPY HERE FOR PT. PER ORDER.
--- NOTE | 2021-06-19 10:15 | NUR ---
pt resting quietly with non rebreather on with vaport therm for extra oxygen. sats 94 percent at this time. pt remains alert/oriented x3.
--- NOTE | 2021-06-19 10:46 | NUR ---
PTS CALLED FOR UPDATE, PT WILL REMAIN WITH SATS IN MID 90'S LONG SHE KEEPS NON REBREATHER ON, BUT TAKES IT OFF AND ON AND SATS WILL DROP TO 70'S
--- NOTE | 2021-06-19 13:11 | NUR ---
pt resting quietly, sats 91%, continues to watch hallmark, with no complaints.
--- NOTE | 2021-06-19 15:47 | NUR ---
PT REMAINS RESTING ON RECLINER, VITAL SIGNS STABLE, CALLED AND WAS GIVEN UPDATE. NO DISTRESS NOTED, CALL LIGHT AT SIDE, CHRISTIAN DRAINING YELLOW URINE. PT STATES NOSE HAS DRIED CRUSTED BLOOD IN IT , WAS GIVEN WET TOWEL TO TRY AND CLEAN NASAL AREA A LITTLE AT A TIME. PTS SATS TOLERATED WELL.
--- NOTE | 2021-06-19 16:52 | NUR ---
RIGHT WRIST IV INFILTRATED, REMOVED, AND RESTARTED #20 IN LAC, INFUSING ANTIBIOTICS WELL AT THIS TIME. PT REMAINS LAID BACK IN RECLINER, NO COMPLAINTS.
--- NOTE | 2021-06-19 19:00 | NUR ---
REPORT RECEIVED FROM Julia BENNETT RN. CARE OF PT ASSUMED AT THIS TIME.
[2021-06-20] VITALS (11 sets, daily range): BP systolic 111–164; BP diastolic 60–86
--- NOTE | 2021-06-20 04:54 | NUR ---
Franck BATISTA SENIOR FINANCIAL REPORTING ACCOUNTANT IN ROOM TO COLLECT AM LABS.
[2021-06-20 05:46] LABS: HEMATOCRIT 38.7 % (37.0-47.0); HEMOGLOBIN 12.4 g/dl (12.0-16.0); MEAN CELL VOLUME 90.8 fL CALC (80.0-100.0); MEAN CORPUSCULAR HGB 29.1 pG CALC (26.0-32.0); RED BLOOD COUNT 4.26 mill/uL (4.20-5.60)
[2021-06-20 06:04] LABS: ALBUMIN 2.7 g/dL (3.2-5.0); ALKALINE PHOSPHATASE 100 u/l (38-126); ANION GAP 8 (6-22 (CALC)); BILIRUBIN, TOTAL 0.5 mg/dL (0.0-1.4); BUN 19 mg/dL (8-23); BUN/CREATININE RATIO 27 (12-20 (CALC)); CARBON DIOXIDE 29 mmol/l (22-30); CHLORIDE 101 mmol/l (95-108); CREATININE 0.7 mg/dL (0.5-1.0); GFR > 60 ML/MIN (>=60 (CALC)); GFR FOR AFR.AMER. > 60 ML/MIN (>=60 (CALC)); POTASSIUM 4.2 mmol/l (3.5-5.1); SGOT/AST 42 u/l (9-36); SODIUM 134 mmol/l (137-146); TOTAL PROTEIN 5.5 g/dL (6.3-8.2)
--- NOTE | 2021-06-20 06:18 | NUR ---
pt laying in chair at bedside c hhfnc and 100% NRB onat this time. resting comfortably, asleep. nad. vss. tube molder fiberglass to monitor.
--- NOTE | 2021-06-20 07:14 | NUR ---
PT REPORT RECEIVED FROM CUSTOMER OPERATIONS INTERN. PT ALERT/ORIENTED X3, SITTING UP IN RECLINER WITH AT THIS TIME NON REBREATHER, WAS TOLD SHE WILL SWITCH OUT HERSELF FROM VAPOTHERM TO NON REBREATHR WHEN HER NOSE GETS TOO DRY OR STARTS HURTING AROUND EARS. SATS IN THE MID 90'S. CHRISTIAN DRAINING, CALL LIGHT WITHIN REACH. NO COMPLAINTS AT THIS TIME.
--- NOTE | 2021-06-20 09:22 | NUR ---
weaned hhfnc paramters as pe pt spo2 and md request to initiate weaning from hhfnc. pt jaswinder well at this point. director of business systems to monitor.
--- NOTE | 2021-06-20 09:29 | NUR ---
XRAY HERE PORTABLE CHEST XRAY
--- NOTE | 2021-06-20 10:58 | NUR ---
weaned hhfnc paramters as per pt spo2 and md order. pt jaswinder well at this time. in chair at bedside, resting comfortably. nad. vss. dough catcher to monitor. pt currently on previously documented hhfnc paramters + 100% NRB as per md request.
--- NOTE | 2021-06-20 12:51 | NUR ---
PT REMAINS SITTING UP IN RECLINER WATCHING TV, NO COMPLAINTS, VITAL SIGNS STABLE. CALL LIGHT WITHIN REACH, PT REMAINS ON VAPOTHERM DECREASED TO 20 AND NON REBREATHER. STATES FEELS LIKE SHE CAN BREATHE BETTER.
--- NOTE | 2021-06-20 15:23 | NUR ---
S: Patient reported feeling ok on this date as she was up sitting in her chair. O: Patient performed: each was performed in chair with legs elevated 2 x 10 each SLR 2 x 10 each hip abduction 2 x 10 each ankle pumps 2 x 10 each hip flexion Sit to stand Min A x 1 Patient required additional assistance to initiate movement to stand. Transfer to bed CGA x 1 Once standing patient only required CGA to return to bed in the supine position. Patient also temporarily had high flow O2 removed by RAILWAY EQUIPMENT OPERATOR in order to change input source to the other side of the bed. A: Patient's O2 sat levels stayed consistently around 90%-100% with high flow O2 but during standing/transfer to bed O2 sat decreased to 81% without high flow O2. Patient was able to demonstrate increased activity than during initial evaluation but patient still requires vapotherm and high flow O2 to function with maintained O2 sat levels. P: Patient will continue to need interventions focusing on strengthening, endurance, gait training and balance training to improve functional ADLs while also building tolerance to decreased supplemental O2 intake. Patient's Am Pac score on this date was 10 which is a recommendation for an extended care facility. I agree with this recommedation at this time due to her ability to funciton with ADLs without O2 desaturation.
--- NOTE | 2021-06-20 15:58 | NUR ---
weaned pt from hhfnc. pt on nrb 100% fiO, jaswinder well with spo2=90. when pt is active or consuming nutrition, will place on supplemental oxygen either via hhfnc or hfnc, and titrate as needed. rn and group tester in agreement for plan of care. group tester to monitor. nad currently, vss.
--- NOTE | 2021-06-20 17:19 | NUR ---
PT RESTING ON STRETCHER, WATCHING HALLMARK, VAPOTHERM AT 20L@100 AND USING NON REBREATHER PER DR. FLORES REQUEST. NO COMPLAINTS AT THIS TIME
--- NOTE | 2021-06-20 19:34 | NUR ---
pt awake in bed; offers no complaints; no apparent distress noted; assessment completed at this time; pt alert and oriented; denies pain; no n/v noted at this time; resp even and unlabored; lungs clear/ diminished bases; skin color wnl; o2 per vapotherm at 20L and 100% FiO2; o2 sat 88% 100% NRB at bedside on standby; assembly instructions writer dry cough noted; hr reg; strong pulses; no edema noted; sr on monitor; abd soft with bs present; no bm noted per journalists and other writers; sahu to gravity draining clear yellow urine; cath strap intact; #20 to lac with ivf infusing at kvo; no redness or edema noted at site; plan of care/ meds explained; call light within reach; will continue to monitor closely
--- NOTE | 2021-06-20 20:15 | NUR ---
awake in bed; vapotherm intact; offers no complaints; will continue to monitor
--- NOTE | 2021-06-20 21:58 | NUR ---
resting in bed with eyes closed; no apparent distress noted; vapotherm intact; NRB placed over vapotherm; o2 sat currently 89% with both devices; sr on monitor; iv intact; will continue to monitor
[2021-06-21] VITALS (15 sets, daily range): BP systolic 142–181; BP diastolic 55–94
--- NOTE | 2021-06-21 00:05 | NUR ---
resting in bed with eyes closed; no apparent distress noted; sr on monitor; vapotherm and NRB intact; sahu to gravity; will continue to monitor
--- NOTE | 2021-06-21 02:12 | NUR ---
resting in bed with eyes closed; vapotherm and nrb intact; sahu to gravity; sr on monitor; call light within reach; will continue to monitor
--- NOTE | 2021-06-21 04:05 | NUR ---
resting in bed with eyes closed; vapo/nrb intact; iv intact; sr on monitor; sahu to gravity; will continue to monitor
[2021-06-21 05:09] LABS: HEMOGLOBIN 12.4 g/dl (12.0-16.0); IMMATURE GRANULOCYTES 1.5 % (0.0-5.0); MEAN CELL VOLUME 89.6 fL CALC (80.0-100.0); MEAN CORPUSCULAR HGB 29.2 pG CALC (26.0-32.0); MEAN CORPUSCULAR HGB CONC 32.6 g/dL CAL (32.0-36.0); NEUT# 12.34 thou/uL (2.00-7.15); RED BLOOD COUNT 4.24 mill/uL (4.20-5.60); RED CELL DISTRI WIDTH 12.9 % (11.5-15.5)
[2021-06-21 05:32] LABS: ALKALINE PHOSPHATASE 132 u/l (38-126); ANION GAP 8 (6-22 (CALC)); BILIRUBIN, TOTAL 0.5 mg/dL (0.0-1.4); BUN 19 mg/dL (8-23); BUN/CREATININE RATIO 31 (12-20 (CALC)); C-REACTIVE PROTEIN 2.1 mg/dL (0-0.9); CARBON DIOXIDE 28 mmol/l (22-30); CHLORIDE 102 mmol/l (95-108); CREATININE 0.6 mg/dL (0.5-1.0); GFR > 60 ML/MIN (>=60 (CALC)); GFR FOR AFR.AMER. > 60 ML/MIN (>=60 (CALC)); POTASSIUM 4.3 mmol/l (3.5-5.1); SGOT/AST 49 u/l (9-36); SODIUM 134 mmol/l (137-146); TOTAL PROTEIN 5.9 g/dL (6.3-8.2)
--- NOTE | 2021-06-21 06:04 | NUR ---
pt resting in bed with eyes closed; no apparent distress noted; vapo/ and nrb continues; sahu to gravity; iv intact; sr on monitor;
--- NOTE | 2021-06-21 08:00 | NUR ---
REPORT RECEIVED FROM KELLEE DOMINGUEZ. PT RESTING IN BED WITH VAPOTHERM IN PLACE. SPO2 IS GREATER THAN 88%. PT AWAKE ALERT AND APPROPRIATE. DENIES PAIN, SOB OR DISCOMFORT. CALL LIGHT WITHIN REACH. INSTRUCTED PT TO CALL FOR ASSISTANCE, VERBALIZES UNDERSTANDING.
--- NOTE | 2021-06-21 10:00 | NUR ---
PT ASSISTED TO SITTING POSITION, IPAD SAT UP AND PT ABLE TO WATCH SERVICES FOR SON INDEPENDANTLY. MD AT BS, SPO2 IS LOW TITRATED VAPOTHERM TO 35L WITH NON-REBREATHER PLACED. PT SPO2 QUICKLY RISES TO 95%. WILL CONTINUE TO MONITOR CLOSELY.
--- NOTE | 2021-06-21 12:00 | NUR ---
PT RESTING IN BED, TOLERATING TITRATION OF VAPOTHERM 35L FIO2, ABLE TO EAT SOME LUNCH. DENIES SOB, PAIN OR GENERALIZED DISCOMFORT. CALL LIGHT WITHIN REACH. INSTRUCTED PT TO CALL FOR ASSISTANCE, VERBALIZES UNDERSTANDING.
--- NOTE | 2021-06-21 14:00 | NUR ---
PT RESTING WITH EYES CLOSED AT THIS TIME. VSS, DOES NOT APPEAR TO BE IN ANY DISTRESS. WILL CONTINUE TO MONITOR CLOSELY.
--- NOTE | 2021-06-21 15:19 | NUR ---
S: Patient was in much better spirits today as she was able to watch her son's memorial service. O: Patient performed: 2 x 15 each SLR 2 x 15 each hip abduction 1 x 15 each hip flexion Patient reported being fatigued and wanting to stop before completing the second set of hip flexion. Patient's O2 sat desaturated to 89% at one point but was able to recover to 96%. A: Patient required verbal cuing to keep inhaling and exhaling instead of holding her breath. Patient also required verbal and tactile cuing in order to complete full AROM as patient started to experience muscle fatigue. Patient will continue to progress with activity as she builds more tolerance and endurance. P: Patient will continue with strengthening activities, endurance activities, transfers, gait training and balance training to increase function with ADLs. Patient's Am Pac score on this date was 10 which is a discharge recommendation for an extended care facility. I agree with this recommendation at this time as the patient requires continued care to monitor her O2 desaturation with activity and increased supplemental O2.
--- NOTE | 2021-06-21 17:00 | NUR ---
PT REQUESTING TO GET OOB AND STAND. BED LINENS CHANGED AT THIS TIME. PT STABLE ENOUGH TO MARCH IN PLACE FOR APPROXIMATELY 20 SECONDS. PT ADMITS TO BEING SOB SPO2 STAYS ABOVE 85% FOR THE ENTIRE LINEN CHANGE AND MARCHING IN PLACE. PT ENCOURAGED TO SIT AT SIDE OF BED, WITH ARMS ELEVATED OVER BEDSIDE TABLE. SPO2 WITH NON-REBREATHER OFF STAYS ABOVE 95%. VAPOTHERM TITRATED FROM 35L TO 30L. SPO2 REMAINS OVER 88%
--- NOTE | 2021-06-21 18:10 | NUR ---
PT ASSISTED BACK TO BED AFTER EATING DINNER, VAPOTHERM SETTINGS ARE 30L 100 FIO2. PT SPO2 IS 90%. CALL LIGHT WITHIN REACH. INSTRUCTED PT TO CALL FOR ASSISTANCE, VERBALZIES UNDERSTANDING.
--- NOTE | 2021-06-21 18:14 | NUR ---
pt cyril morse. vss. rseting comfortable in bed at this time. quality assurance lead to monitor.
--- NOTE | 2021-06-21 19:30 | NUR ---
pt awake in bed; no apparent distress noted; pt offers no complaints; assessment completed at this time; pt alert and oriented; denies pain; no n/v noted; resp even and unlabored; lungs clear/ diminished bases; skin color wnl; o2 per vapotherm at 30L and 100%; nonprofit fundraiser dry cough noted; hr reg; strong pulses; no edema noted; sr on monitor; scds off per pt request/refusal; abd soft with bs present; no bm noted per write;r mom offered at hs; sahu to gravity draining clear yellow urine; cath strap intact; #20 saline locked to lac; no redness or edema noted at site; plan of care/ meds explained; pt encouraged to repositioned from side to side d/t slight redness to inner buttocks, agreed; call light within reach; will continue to monitor
--- NOTE | 2021-06-21 19:51 | NUR ---
Dr Gutierrez called this senior mortgage underwriter; update provided; o2 sat 98-100%; FiO2 to be titrated per MD;
--- NOTE | 2021-06-21 20:05 | NUR ---
awake in bed; offers no complaints; iv intact; sahu to gravity; sr on monitor; will continue to monitor
--- NOTE | 2021-06-21 20:24 | NUR ---
RT Rojelio present at bedside; o2 sat 98%; spoke with RT in regards to Dr Gutierrez request to attempt weaning FiO2; pt titrated to 85%; will continue to monitor closely
--- NOTE | 2021-06-21 21:01 | NUR ---
awake in bed; vapotherm intact and maintained; o2 sat 77-81%; vapotherm titrated to 100% FiO2; pt denies resp distress; pm meds explained and administered; sr on monitor; sahu to gravity; call light within reavch; will continue to monitor
--- NOTE | 2021-06-21 22:00 | NUR ---
resting in bed with eyes closed; no distress noted; sr on monitor; will continue to monitor
--- NOTE | 2021-06-21 23:05 | NUR ---
o2 sat noted at 63%; 100% NRB placed over vapotherm for combo therapy; iv intact; sr on monitor; no distress noted; will continue to monitor
--- NOTE | 2021-06-21 23:56 | NUR ---
awake; noted with o2 off; o2 juan 43% ra; vapotherm and nrb reapplied; sr on monitor; sahu to gravity; will continue to monitor
[2021-06-22] VITALS (20 sets, daily range): BP systolic 115–175; BP diastolic 59–92
--- NOTE | 2021-06-22 00:10 | NUR ---
pt resting in bed with eyes closed; no distress noted; vapotherm/nrb intact; sr on monitor; sahu to gravity; call light within reach; will continue to monitor
--- NOTE | 2021-06-22 02:03 | NUR ---
resting with eyes closed; no apparent distress noted; sr on monitor; vapo/nrb maintained; will continue to monitor
--- NOTE | 2021-06-22 04:14 | NUR ---
pt awake in bed; offer no complaints; sr on monitor; vapo/nrb continued; sahu to gravity; call light within reach
--- NOTE | 2021-06-22 06:06 | NUR ---
pt awake in bed; offers no complaints; no distress noted; sr on monitor; sahu to gravity; vapo/nrb combo continued; call light within reach
[2021-06-22 06:12] LABS: HEMATOCRIT 41.3 % (37.0-47.0); HEMOGLOBIN 13.4 g/dl (12.0-16.0); MEAN CELL VOLUME 89.6 fL CALC (80.0-100.0); MEAN CORPUSCULAR HGB 29.1 pG CALC (26.0-32.0); MEAN CORPUSCULAR HGB CONC 32.4 g/dL CAL (32.0-36.0); RED BLOOD COUNT 4.61 mill/uL (4.20-5.60); RED CELL DISTRI WIDTH 12.9 % (11.5-15.5)
[2021-06-22 06:35] LABS: ALKALINE PHOSPHATASE 135 u/l (38-126); ANION GAP 8 (6-22 (CALC)); BILIRUBIN, TOTAL 0.5 mg/dL (0.0-1.4); BUN 21 mg/dL (8-23); BUN/CREATININE RATIO 28 (12-20 (CALC)); CARBON DIOXIDE 31 mmol/l (22-30); CHLORIDE 100 mmol/l (95-108); CREATININE 0.7 mg/dL (0.5-1.0); GFR > 60 ML/MIN (>=60 (CALC)); GFR FOR AFR.AMER. > 60 ML/MIN (>=60 (CALC)); POTASSIUM 4.8 mmol/l (3.5-5.1); SGOT/AST 55 u/l (9-36); SODIUM 133 mmol/l (137-146); TOTAL PROTEIN 5.9 g/dL (6.3-8.2)
--- NOTE | 2021-06-22 07:16 | NUR ---
pt report received. pt resting quietly in stretcher, no complaints. vital signs stable. call light within reach.
--- NOTE | 2021-06-22 09:40 | NUR ---
PT UP TO BEDSIDE COMMODE FOR LARGE BOWEL MOVEMENT, STOOD UP FOR BATH AND SAT IN RECLINER, SATS REMAINED IN THE 90'S. EXAMINING PT AND WILL HAV RT BRING VAPOTHERM TO
--- NOTE | 2021-06-22 11:27 | NUR ---
PT REMAINS SITTING UP IN RECLINER, FACETIMING WITH FAMILY
--- NOTE | 2021-06-22 14:00 | NUR ---
removed non rebreather to see what pts sats will do. if they drop below 85% will replace back on. pt sitting up in bed watching hallmark. no distress noted.
--- NOTE | 2021-06-22 15:20 | NUR ---
Subjective: Patient states that she thinks she is breathing a little better. Patient states that she is practicing her breathing pattern as much as she can. Objective: Patient participated wit the following: Seated knee extension 2 x 15 reps. Seated hip flexion 2 x 15 reps. Seated hamstring curls 2 x 15 reps. Seated hip adduction 2 x 15 reps. Seated hip abduction 2 x 15 reps. Seated ankle pumps 2 x 15 reps. Sit to stand activity (5 reps) with Min A x 1. Assessment: Patient exhibiting improving breathing pattern during exercise protocol and increased functional weight bearing ADLs (patient's oxygen saturation has improved, now starting from 95% and going down as low as 87% and going back up to 92% during ADLs and exercises with patient exhibiting no distress). Plan: Patient will continue with her exercise protocol and practice of proper body mechanics with ADLs to help improve functional weight bearing ADL capability, help decrease trick movements, fall risks, and any respiratory distress. Am Pac score at 11 points, discharge recommendation still with extended care facility and I agree with this recommendation.
--- NOTE | 2021-06-22 15:46 | NUR ---
CARE RESUMED FROM KELLEE ORR PT RESTING IN CHAIR. VAPOTHERM IS AT 30L 90%FIO2. SPO2 IS 97%. ZITHROMAX INFUSING THROUGH PATENT IV SITE. PT ASSESSMENT PREFORMED AND NO CHANGE FROM PREVIOUS ASSESSMENT. CALL LIGHT WITHIN REACH. INSTRUCTED PT TO CALL FOR ASSISTANCE, VERBALIZES UNDERSTANDING.
--- NOTE | 2021-06-22 17:59 | NUR ---
PT SITTING IN BSC, VAPOTHERM SET TO 80%FIO2, SPO2 IS GREATER THAN 90% AT THIS TIME. PT TRAY PROVIDED, ROCEPHIN IV INFUSING. CHRISTIAN CATHETER DRAINED, 500CC OF CLEAR YELLOW URINE REMOVED AT THIS TIME. PT DENIES SOB, PAIN OR DISCOMFORT AT THIS TIME. CALL LIGHT WITHIN REACH. INSTRUCTED PT TO CALL FOR ASSISTANCE, VERBALIZES UNDERSTANDING.
--- NOTE | 2021-06-22 20:30 | NUR ---
RESTING IN BED WITH EYES CLOSED, AWAKENS TO NAME. NO COMPLAINTS VOICED. RESP NON-LABORED. ON O2 VAPOTHERM 30L/80%. O2 SAT 935 BREATH SOUND DIMINISHED SLT COARSE IN BILATERAL BASES. SALINE LOCK INTACT IN LAC, SITE BENIGN. CHRISTIAN DRAINS CLEAR YELLOW URINE. SHOE POLISHER SHOWS SR. DISCUSSED PLAN OF CARE. DENIES NEEDS AT THIS TIME.
--- NOTE | 2021-06-22 22:00 | NUR ---
RESTING WITH EYES CLOSED. RESP NON-LABORED. VSS.
[2021-06-23] VITALS (22 sets, daily range): BP systolic 110–178; BP diastolic 54–92
--- NOTE | 2021-06-23 | NUR ---
SLEEPING, AWAKENS EASILY TO NAME. NO C/O VOICED. VSS. SR ON MONITOR.
--- NOTE | 2021-06-23 02:00 | NUR ---
NO CHANGES TO REPORT. VSS. RESTING WITH EYES CLOSED.
--- NOTE | 2021-06-23 04:45 | NUR ---
BLOOD DRAWN BY ACOUSTICAL INSTALLER FOR AM LABS. VSS. SR ON MONITOR.
[2021-06-23 05:18] LABS: HEMATOCRIT 39.1 % (37.0-47.0); HEMOGLOBIN 12.9 g/dl (12.0-16.0); IMMATURE GRANULOCYTES 0.9 % (0.0-5.0); MEAN CELL VOLUME 87.3 fL CALC (80.0-100.0); MEAN CORPUSCULAR HGB 28.8 pG CALC (26.0-32.0); NEUT# 11.9 thou/uL (2.00-7.15); RED BLOOD COUNT 4.48 mill/uL (4.20-5.60)
[2021-06-23 05:24] LABS: ALBUMIN 2.7 g/dL (3.2-5.0); ALKALINE PHOSPHATASE 141 u/l (38-126); ANION GAP 11 (6-22 (CALC)); BILIRUBIN, TOTAL 0.5 mg/dL (0.0-1.4); BUN 23 mg/dL (8-23); BUN/CREATININE RATIO 35 (12-20 (CALC)); C-REACTIVE PROTEIN 1.1 mg/dL (0-0.9); CARBON DIOXIDE 25 mmol/l (22-30); CHLORIDE 101 mmol/l (95-108); CREATININE 0.7 mg/dL (0.5-1.0); GFR > 60 ML/MIN (>=60 (CALC)); GFR FOR AFR.AMER. > 60 ML/MIN (>=60 (CALC)); POTASSIUM 4.5 mmol/l (3.5-5.1); SGOT/AST 37 u/l (9-36); SODIUM 132 mmol/l (137-146); TOTAL PROTEIN 5.4 g/dL (6.3-8.2)
--- NOTE | 2021-06-23 06:00 | NUR ---
RESTIGN QUIETLY IN BED. VSS. SR ON MONITOR. REMAINS ON VAPOTHERM 30 L/80% AND NRB.
--- NOTE | 2021-06-23 07:00 | NUR ---
ASSUMED CARE OF PT FROM KELLEE ONEILL. NO S/S OF DISTRESS NOTED, PT RESTING IN BEDM, DENIES NEEDS
--- NOTE | 2021-06-23 07:46 | NUR ---
PT SITTING UP IN BED EATING BREAKFAST. DENIES NEEDS. DENIED GETTING OOB TO CHAIR THIS AM, STATES SHE WILL LATER THIS AM
--- NOTE | 2021-06-23 09:05 | NUR ---
HELPED PT OOB TO RECLINER. NO S/S OF DISTRESS NOTED, CALL LIGHT WITHIN REACH, DENIES NEEDS
--- NOTE | 2021-06-23 09:20 | NUR ---
ROUNDING AT BEDSIDE ROUNDING ON PT
--- NOTE | 2021-06-23 11:30 | NUR ---
PT PROVIDED LUNCH TRAY, DENIES NEEDS, NO S/S OF DISTRESS NOTED
--- NOTE | 2021-06-23 13:45 | NUR ---
PT ASSISTED TO BSC FOR A BM AND ASSISTED WITH A BATH. PT THEN ASSISTED BACK TO BED, DENIES ANY NEEDS, NO S/S OF DISTRESS NOTED.
--- NOTE | 2021-06-23 15:00 | NUR ---
PT RESTING IN BED. DENIES NEEDS, NO S/S OF DISTRESS NOTED.
--- NOTE | 2021-06-23 17:30 | NUR ---
PT SITTING UP WITH DINNER TRAY. DENIES NEEDS, NO S/S OF DISTRESS NOTED.
--- NOTE | 2021-06-23 18:16 | NUR ---
PT HAS HAD NRB O2 MASK OFF SINCE LUNCH AND HAS MAINTAINED O2 SATS ABOVE 88, EXCEPT WITH EXERTION, WITH 25L, 80% FIO2 OF VAPOTHERM.
--- NOTE | 2021-06-23 19:15 | NUR ---
RESTING QUIETLY IN BED WITH EYES CLOSED. O2 SAT 92% RESP NON-LABORED AT REST. OCC COUGH, EXPECTORATES SMALL AMOUNTS OF THICK CARCAMO SPUTUM. BREATH SOUNDS DIMINISHED THROUGHOUT. ON VAPOTHERM 25L/80% SHIFT ASSESSMENT COMPLETED. DISCUSSED PLAN OF CARE. DENIES NEEDS AT THIS TIME. CALL BAZAN IN REACH.
--- NOTE | 2021-06-23 21:00 | NUR ---
PATIENT REQUEST SOMETHING TO HELP HER REST. XANAX 0.25 MG PO GIVEN ORDERED.
--- NOTE | 2021-06-23 22:00 | NUR ---
RESTING WITH EYES CLOSED. RESP NON-LABORED. VSS.
[2021-06-24] VITALS (22 sets, daily range): BP systolic 110–168; BP diastolic 58–85
--- NOTE | 2021-06-24 | NUR ---
O2 SAT 91-93% REMAINS ON VAPOTHERM 30 L/85%
--- NOTE | 2021-06-24 02:00 | NUR ---
SLEEPING. NO CHANGES TO REPORT. VSS. MAINTAINING O2 SATS GREATER THAN 90%
--- NOTE | 2021-06-24 04:00 | NUR ---
COTNIUES TO REST QUIETLY IN BED. IN NO ACUTE DISTRESS. VSS.
[2021-06-24 05:15] LABS: HEMATOCRIT 37.1 % (37.0-47.0); HEMOGLOBIN 12.6 g/dl (12.0-16.0); MEAN CELL VOLUME 87.3 fL CALC (80.0-100.0); MEAN CORPUSCULAR HGB 29.6 pG CALC (26.0-32.0); RED BLOOD COUNT 4.25 mill/uL (4.20-5.60); RED CELL DISTRI WIDTH 13.1 % (11.5-15.5)
[2021-06-24 05:40] LABS: ALBUMIN 2.6 g/dL (3.2-5.0); ALKALINE PHOSPHATASE 119 u/l (38-126); ANION GAP 9 (6-22 (CALC)); BILIRUBIN, TOTAL 0.5 mg/dL (0.0-1.4); BUN 24 mg/dL (8-23); BUN/CREATININE RATIO 36 (12-20 (CALC)); CARBON DIOXIDE 25 mmol/l (22-30); CHLORIDE 101 mmol/l (95-108); CREATININE 0.7 mg/dL (0.5-1.0); GFR > 60 ML/MIN (>=60 (CALC)); GFR FOR AFR.AMER. > 60 ML/MIN (>=60 (CALC)); POTASSIUM 4.7 mmol/l (3.5-5.1); SGOT/AST 35 u/l (9-36); SODIUM 130 mmol/l (137-146); TOTAL PROTEIN 5.1 g/dL (6.3-8.2)
--- NOTE | 2021-06-24 06:00 | NUR ---
SLEPT WELL. VSS. SR ON MONITOR. GOOD URINE OUTPUT, 1250 ML CLEAR YELLOW URINE.
--- NOTE | 2021-06-24 07:40 | NUR ---
REPORT RECEIVED FROM KELLEE WATSON. PT RESTING IN BED SEMI FOWLERS; ALERT ORIENTED X 3. ON AIRBORN/CONTACT PRECAUTIONS FOR COVID PNA. PT DENIES PAIN AT THIS TIME; RESPIRATIONS EVEN AND UNLABORED ON VAPOTHERM 30L 80% FIO2; DENIES SOB; SPO2 96%. VAPOTHERM TITRATED DOWN TO 25L; WILL CONTINUE TO MONITOR. #20 IV SITE TO LAC APPEARS HEALTHY AND FLUSHES. 16F CHRISTIAN CATHETER PATENT AND DRAINING TO GRAVITY; CLEAR, PALE YELLOW URINE. PT DECLINED TO GET UP IN CHAIR FOR BREAKFAST; AGREES TO GET UP AFTER BREAKFAST. POC REVIEWED; PT ENCOURAGED TO VERBALILZE CONCERNS. STATES UNDERSTANDING; IN GOOD SPIRITS AND HAS POSITIVE OUTLOOK ON HER HEALTH. SAFETY MEASURES IN PLACE. CALL LIGHT WITHIN REACH.
--- NOTE | 2021-06-24 09:06 | NUR ---
REPOSITIONED UP TO CHAIR; AM MEDS ADMINISTERED. SPO2 100% WHILE SITTING UP; FIO2 DECREASED TO 80%.
--- NOTE | 2021-06-24 10:13 | NUR ---
DR. SIMMONS AT BEDSIDE; NEW ORDERS RECEIVED.
--- NOTE | 2021-06-24 10:31 | NUR ---
CHRISTIAN REMOVED AT THIS TIME; 150 ML URINE EMPTIED PRIOR TO REMOVAL. IV FLUIDS NOW INFUSING AT 80ML/HR; DRESSING TO IV REPLACED. DNR FORM SIGNED BY PATIENT AND DR. SIMMONS. CODE STATUS UPDATED TO DNR.
--- NOTE | 2021-06-24 11:33 | NUR ---
PHYSICAL THERAPY AT BEDSIDE. SPO2 DECREASES TO 90% WITH EXERTION. SINUS RYTHM 77 ON HEART MONITOR.
--- NOTE | 2021-06-24 14:00 | NUR ---
PT RESTING IN BEDSIDE CHAIR WITH LEGS ELEVATED; EYES CLOSED AND NO SIGNS OF DISTRESS. LAST DOSE OF REMDESIVIR NOW INFUSING. INCONTINENT OF URINE; BRIEF REPLACED AND PERICARE PROVIDED. NO OTHER REQUESTS AT THIS TIME. CALL LIGHT WITHIN REACH.
--- NOTE | 2021-06-24 16:00 | NUR ---
CONTINUES ON VAPOTHERM AT 25L FIO2 75%; SPO2 96-97% WHILE RESTING IN CHAIR. NO APPARENT CHANGES IN CONDITION.
--- NOTE | 2021-06-24 17:04 | NUR ---
S: Patient reported feeling much better on this date espcially being able to sleep through the night without high flow supplemental O2. O: Patient performed: 2 x 15 each seated hip flexion 2 x 15 each seated knee extension 2 x 15 each seated hip abduction A: Patient performed all exercises with decreased supplemental O2 use and O2 sat decreased to 83% at the lowest but was able to recover to 94%. Patient maintained between 87%-91% O2 sat during most of activity. Patient did fatigue due to her being on decreased supplemental O2 during activity. Patient is making progress and will need to continue POC while she continues to recover. P: Patient will continue with interventions focused on strengthening, endurance, tolerance to weight bearing activity, gait training, and balance training to improve function with weight bearing ADLs while maintaining O2 sat levels with activity. Patient's Am Pac score on this date was 11 which would be a discharge recommendation for an extended care facility. I agree with this recommendation at this time due to the patient still having difficulty maintaining O2 sat with ADLs.
--- NOTE | 2021-06-24 18:15 | NUR ---
PT ASSISTED TO BSC FOR VOID; HAD LARGE INCONTINENT VOID WHILE SITTING IN CHAIR; ASSISTED WITH HYGIENE AND NEW BRIEF APPLIED. REPOSITIONED INTO BED SEMI FOWLERS; ALL BELONGINGS PLACED WITHIN REACH INCLUDING CALL LIGHT. NO OTHER REQUESTS FROM PT AT THIS TIME.
--- NOTE | 2021-06-24 19:30 | NUR ---
RESTING IN BED WITH EYES CLSOED. O2 SAT 93% ON VAPOTHERM 25 L/75% O2.
--- NOTE | 2021-06-24 20:30 | NUR ---
PATIENT AWAKE ON ROUNDS. RESTING QUIETLY IN BED. DENIES ANY DISCOMFORTS. RESP SLT DYSPNEIC WITH EXERTION. CURRENTLY SATTING 84-87% ON VAPOTHERM 25 L/75%. VAPOTHERM INCREASED TO 30 L/80% AND O2 SAT GRADUALLY INCREASED TO 90% WILL CONTINUE TO MONITOR CLOSELY. BREATH SOUNDS COARSE IN UPPER AND DIMINISHED IN BILATERAL BASES. ASSISTED PATIENT TO REPOSITION IN BED. ENCOURAGED TO TURN FROM SIDE TO SIDE. DISCUSSED PLAN OF CARE. DENIES NEEDS AT THIS TIME. CALL BAZAN IN REACH.
--- NOTE | 2021-06-24 22:00 | NUR ---
RESTING WITH EYES CLOSED. VSS.
[2021-06-25] VITALS (25 sets, daily range): BP systolic 99–157; BP diastolic 52–84
--- NOTE | 2021-06-25 | NUR ---
INCONTINENT OF URINE IN BRIEF. SIGRID-CARE GIVEN BY SHIPPING SUPPORT CLERK AND ERICA SANDOVAL APPLIED FOR THE NIGHT. VSS. O2 SAT DROPPED INTO THE LOW 80'S WITH CHANGING AND TURNING BACK AND FORTH. WILL MONITOR CLOSELY FOR O2 SAT TO RECOVER.
--- NOTE | 2021-06-25 00:25 | NUR ---
O2 SAT MAINTAINING IN THE MID 80'S, VAPOTHERM 30 L AND O2 INCREASED TO 85%
--- NOTE | 2021-06-25 02:00 | NUR ---
RESTING WITH EYES CLOSED. VSS.
--- NOTE | 2021-06-25 04:00 | NUR ---
PATIENT TURNS SELF FROM SIDE TO SIDE. O2 SATS DROP TO MID 80'S WITH ACTIVITY. ONCE PATIENT IS REPOSITIONED SATS GRADUALLY PICK BACK UP TO 90-93%
[2021-06-25 04:58] LABS: HEMATOCRIT 39.1 % (37.0-47.0); HEMOGLOBIN 12.9 g/dl (12.0-16.0); IMMATURE GRANULOCYTES 1.2 % (0.0-5.0); MEAN CELL VOLUME 87.9 fL CALC (80.0-100.0); NEUT# 7.79 thou/uL (2.00-7.15); RED BLOOD COUNT 4.45 mill/uL (4.20-5.60); RED CELL DISTRI WIDTH 13.1 % (11.5-15.5)
[2021-06-25 05:19] LABS: ALBUMIN 2.6 g/dL (3.2-5.0); ALKALINE PHOSPHATASE 121 u/l (38-126); ANION GAP 7 (6-22 (CALC)); BILIRUBIN, TOTAL 0.6 mg/dL (0.0-1.4); BUN 21 mg/dL (8-23); BUN/CREATININE RATIO 30 (12-20 (CALC)); C-REACTIVE PROTEIN 0.5 mg/dL (0-0.9); CARBON DIOXIDE 25 mmol/l (22-30); CHLORIDE 103 mmol/l (95-108); CREATININE 0.7 mg/dL (0.5-1.0); GFR > 60 ML/MIN (>=60 (CALC)); GFR FOR AFR.AMER. > 60 ML/MIN (>=60 (CALC)); POTASSIUM 4.5 mmol/l (3.5-5.1); SGOT/AST 39 u/l (9-36); SODIUM 131 mmol/l (137-146)
--- NOTE | 2021-06-25 06:34 | NUR ---
NO CHANGES TO REPORT.
--- NOTE | 2021-06-25 07:13 | NUR ---
BG TAKEN 266. PATIENT RESTING COMFORTABLY DENIES ANY NEEDS. BP 85/56 . PATIENT ASYMPTOMATIC STATES HER BP RUNS A LITTLE LOW. O2 96 ON 2LNC. BREATH SOUNDS DIMINSHED WITH NON PRODUCT COUGH. NSR ON TELE. CALL LIGHT WITHIN REACH
--- NOTE | 2021-06-25 07:20 | NUR ---
PATIENT UP TO CHAIR WITH TECH AND RN. SATS DROPPING TO 70'S ON EXCERTION BUT PATIENT DOES COME BACK UP AFTER REST. 02 96 PERCENT URRENTLY ON VAPOTHERM 35L @85% OXYGEN. LUNG SOUNDS DIMINISHED, NSR. PATIENT IS ALERT AND ORIENTED AND DENIES ANY NEEDS. CALL LIGHT WITHIN REACH
--- NOTE | 2021-06-25 09:00 | NUR ---
PATIENT RESTING COMFORTABLY IN CHAIR VITALS WITHIN NORMAL LIMITS. SPOKE WITH RT ABOUT WEANING PATIENTS VAPOTHERM DOWN TODAY SHE IS SATING IN THE HIGH 90'S. CALL LIGHT WITHIN REACH
--- NOTE | 2021-06-25 11:00 | NUR ---
PATIENT REQUESTS TO STAY IN CHAIR. INSTRUCTED TO CHANGE POSITION EVER SO OFTEN. PATIENT VERBALIZES UNDERSTANDING. VITALS WNL CALL LIGHT PLACED BACK IN REACH
--- NOTE | 2021-06-25 13:09 | NUR ---
S: Patient appeared and reported being more tired on this date. O: Patient performed: 2 x 10 each supine SLR 2 x 10 each hip abduction A: Patient was unable to perform additional exercises due to fatigue. Patient required increased time to recover O2 sat during and after activity. Patient O2 sat decreased to 83% at one point during exercise and was able to recover to 93% but it took her longer than on previous sessions. The RECYCLE DRIVER also reported that her supplemental O2 had to be increased overnight due to her O2 sat decreasing which could have contributed to her fatigue on this date. P: Patient will need to continue interventions focused on strengthening, endurance, tolerance to activity, gait training, and balance training to improve function with ADLs and to better maintain O2 sat levels with activity. Patient's Am Pac score on this date was 10 which would be a discharge recommendation for an extended care facility. I agree with this recommendation at this time due to her being quick to fatigue and her still having difficulty maintaining her O2 sat.
--- NOTE | 2021-06-25 13:15 | NUR ---
SPOKE WITH PATIENTS "BETTY". HE REQUESTED THAT THE PATIENTS DOCTOR CALL HIM. RN SENT A MESSAGE TO DR SIMMONS FOR THIS REQUEST.
--- NOTE | 2021-06-25 13:42 | NUR ---
PATIENT INCONTINENT IN CHAIR. SIGRID CARE GIVEN, GOWNS AND LINEN CHANGE. PATIENT BOOSTED UP BACK IN BED AND RESTING COMFORTABLY. CALL LIGHT WITHIN REACH. 02 CAME BACK UP AFTER EXCERTION 92 CURRENTLY
--- NOTE | 2021-06-25 15:00 | NUR ---
PATIENT RESTING IN BED VITALS WNL
--- NOTE | 2021-06-25 16:37 | NUR ---
PRN DILAUDID GIVEN C/O PAIN 03/26.
--- NOTE | 2021-06-25 17:07 | NUR ---
PATIENT REPORTS FEELING NAUSEA MD NOTIFIED ORDERS FOR ZOFRAN GIVEN
--- NOTE | 2021-06-25 20:15 | NUR ---
PATIENT IN BED, RESTING QUIETLY, NO COMPLAINTS, RESPIRATIONS EVEN AND UNLABORED AT THIS TIME. HR REGULAR. PURWICK IN PLACE. MAINTAINING OXYGEN SATURATION ABOVE 90%. ASSESSMENT COMPLETED AND CHARTED. BED IN LOW POSITION. CALL LIGHT WITHIN REACH.
--- NOTE | 2021-06-25 22:00 | NUR ---
NO CHANGES OBSERVED. RESPIRATIONS EVEN AND UNLABORED.
[2021-06-26] VITALS (13 sets, daily range): BP systolic 91–126; BP diastolic 54–79
--- NOTE | 2021-06-26 00:30 | NUR ---
PATIENT RESTING WITH EYES CLOSED. RESPIRATIONS EVEN AND UNLABORED. NO ACUTE DISTRESS OBSERVED. BED IN LOW POSITION. CALL LIGHT WITHIN REACH.
--- NOTE | 2021-06-26 02:00 | NUR ---
RESTING QUIETLY. NO CHANGES.
--- NOTE | 2021-06-26 04:30 | NUR ---
PATIENT RESTING QUIETLY. NO ACUTE DISTRESS OBSERVED. RESPIRATIONS EVEN AND UNLABORED.
[2021-06-26 05:25] LABS: HEMATOCRIT 39.2 % (37.0-47.0); HEMOGLOBIN 12.7 g/dl (12.0-16.0); MEAN CELL VOLUME 90.1 fL CALC (80.0-100.0); MEAN CORPUSCULAR HGB 29.2 pG CALC (26.0-32.0); MEAN CORPUSCULAR HGB CONC 32.4 g/dL CAL (32.0-36.0); RED BLOOD COUNT 4.35 mill/uL (4.20-5.60); RED CELL DISTRI WIDTH 13.3 % (11.5-15.5)
[2021-06-26 05:46] LABS: ANION GAP 8 (6-22 (CALC)); BUN 20 mg/dL (8-23); BUN/CREATININE RATIO 33 (12-20 (CALC)); CARBON DIOXIDE 25 mmol/l (22-30); CHLORIDE 102 mmol/l (95-108); CREATININE 0.6 mg/dL (0.5-1.0); GFR > 60 ML/MIN (>=60 (CALC)); GFR FOR AFR.AMER. > 60 ML/MIN (>=60 (CALC)); MAGNESIUM 2.2 mg/dL (1.6-2.3); POTASSIUM 4.3 mmol/l (3.5-5.1); SODIUM 131 mmol/l (137-146)
--- NOTE | 2021-06-26 07:18 | NUR ---
PT REPORT RECEIVED FROM DIRECTOR OF ANALYTICAL DEVELOPMENT, PT RESTING QUIETLY ON BED, VAPOTHERM AT 25/75, SATS. 93-95%, NO COMPLAINTS
--- NOTE | 2021-06-26 10:53 | NUR ---
doctor at bedside, has cleared pt to be able to go to [facility], case management already notified. waiting for orders and acceptance. sitting up in bed, sats remain in the 90's, no complaint
[2021-06-26] MEDS ORDERED: PANTOPRAZOLE SO40 M1 PO (11:29)
[2021-06-26] MEDS ORDERED: DEXAMETHASON6 MG PO (11:31)
--- NOTE | 2021-06-26 14:20 | NUR ---
TRIED CALLING REPORT BUT NURSE FOR PT IS BUSY, ALL PTS BELONGINGS , INCLUDING IPAD/CASE/SERVICE TEAM LEADER/GLASSES/CLOTHES PLACED IN TWO SEPARATE BELONGINGS BAG AND PLACED ON BED BY PT TO TAKE WITH HER TO [facility]. PT ALERT/ORIENTED X3, SHE SPOE WITH , SATS CONTINUE TO STAY IN THE 90'S WITH VAPOTHERM AT 25/70%
--- NOTE | 2021-06-26 14:30 | NUR ---
CALLED TRIXIE ZUÑIGA TO GIVE REPORT TO NURSE FOR ROOM 117, WAS TOLD SHE WAS BUSY AND WOULD CALL ME BACK.
--- NOTE | 2021-06-26 16:15 | NUR ---
[facility] CALLED TO SAY THAT THEY WERE TAKING A PT OUT OF ER FIRST AND IT WOULD BE AROUND 8 TONIGHT, PT NOTIFIED AND WATCHING TV. STATES UNDERSTANDING. SATS REMAIN IN THE 90'S, NO PAIN OR COMPLAINTS
--- NOTE | 2021-06-26 18:26 | NUR ---
ADVISED PT OF WAIT TIME FOR TRANSFER. PT VOICES UNDERSTANDING. PUREWICK STILL IN PLACE AND VAPOTHERM REMAINS AT 25/70 WILL BE TRANSFERRED ON CPAP.
--- NOTE | 2021-06-26 19:45 | NUR ---
[facility] call center called & team will be here 10-15 mins.
--- NOTE | 2021-06-26 20:05 | NUR ---
[place] here.
--- NOTE | 2021-06-26 20:25 | NUR ---
[facility] left.
== END 2021-06-26 20:25 | disposition short-term general hospital (02) | DRG 177 ==
LOC: ED 15:04 → ED-I 16:45 → ED 16:45 → ED-I 18:08 → ED 18:26 → ICU 18:27
PROVIDERS: Family Medicine; Internal Medicine; Nurse Practitioner; ADMIT Hospitalist; ATTEND Hospitalist
PROC: XW033E5 Introduction of Remdesivir Anti-infective into Peripheral Vein, Percutaneous Approach, New Technology Group 5 (ICD-10-PCS; principal; 2021-06-15)
PROC: 5A09457 Assistance with Respiratory Ventilation, 24-96 Consecutive Hours, Continuous Positive Airway Pressure (ICD-10-PCS; 2021-06-15)
PROC: 0T9B70Z Drainage of Bladder with Drainage Device, Via Natural or Artificial Opening (ICD-10-PCS; 2021-06-16)
PROC: XW033H5 Introduction of Tocilizumab into Peripheral Vein, Percutaneous Approach, New Technology Group 5 (ICD-10-PCS; 2021-06-20)
DX: U07.1 COVID-19 (principal); J12.82 Pneumonia due to coronavirus disease 2019; J96.01 Acute respiratory failure with hypoxia; E87.1 Hypo-osmolality and hyponatremia; I10 Essential (primary) hypertension; I25.10 Atherosclerotic heart disease of native coronary artery without angina pectoris; E87.8 Other disorders of electrolyte and fluid balance, not elsewhere classified; Z86.73 Personal history of transient ischemic attack (TIA), and cerebral infarction without residual deficits; Z78.1 Physical restraint status; Z79.02 Long term (current) use of antithrombotics/antiplatelets; Z66 Do not resuscitate
CPT/HCPCS: J1650; J2060; J3262; Q3014; Q9967; S0164

== ENCOUNTER 2022-07-11 11:59 | Emergency (ER) | payer MEDICARE, OTHER ==
[~2022-07-11] VITALS: Ht 149.9 cm; Wt 57.0 kg
[~2022-07-11 11:59] MED LIST changes: +DEXAMETHASON6 MG PO; +PANTOPRAZOLE SO40 M1 PO
[2022-07-11 13:14] VITALS: BP 128/52
[2022-07-11 13:31] VITALS: BP 113/41
[2022-07-11 14:00] VITALS: BP 119/45
[2022-07-11] MEDS ORDERED: ZPAK PO (14:15)
[2022-07-11 14:31] VITALS: BP 124/47
[2022-07-11 15:01] VITALS: BP 112/52
[2022-07-11 15:08] VITALS: BP 112/52
== END 2022-07-11 15:08 | disposition home or self-care (01) ==
LOC: ED 11:59
DX: U07.1 COVID-19 (principal); R05.9 Cough, unspecified; R09.81 Nasal congestion; I10 Essential (primary) hypertension; Z86.73 Personal history of transient ischemic attack (TIA), and cerebral infarction without residual deficits